=== PATIENT | male | born 1945 | race Caucasian/White ===

== ENCOUNTER 2017-04-16 10:35 | Emergency (ER) | payer OTHER ==
[2017-04-16] MEDS ORDERED: PENICILLIN V POTASSIUM 500 MG TABLET PO ONE (11:31)
[2017-04-16] MEDS ORDERED: CEPHALEXIN 500 MG CAPSULE PO ONE (11:42)
--- NOTE | 2017-04-16 11:58 | ER Document Report ---
HPI - HPI Patient complains to provider of: Shingles Pain Level: 4 Context: Patient is a 71-year-old male who is referred over by primary care physician for evaluation of shingles. Patient states that he was diagnosed on March 31 of this month and was started on valacyclovir and clotrimazole cream for his shingles. Patient states that he took the medications as prescribed but has had itching at the site. Denies any pain, drainage. Denies any fevers or chills. - CARDIOVASCULAR Cardiovascular: DENIES: Chest pain - DERM Skin Color: Normal Past Medical History - Social History Smoking Status: Current Every Day Smoker Chew tobacco use (# tins/day): No Frequency of alcohol use: None Drug Abuse: None Family History: Reviewed & Not Pertinent Patient has suicidal ideation: No Patient has homicidal ideation: No Renal/ Medical History: Denies: Hx Peritoneal Dialysis Surgical Hx: Negative - Immunizations Hx Diphtheria, Pertussis, Tetanus Vaccination: No Vertical Provider Document - CONSTITUTIONAL Agree With Documented VS: Yes Exam Limitations: No Limitations General Appearance: WD/WN, No Apparent Distress - INFECTION CONTROL TRAVEL OUTSIDE OF THE [place] IN LAST 30 DAYS: No - RESPIRATORY Respiratory: Breath Sounds Normal, No Respiratory Distress, Chest Non-Tender O2 Sat by Pulse Oximetry: 97 - CARDIOVASCULAR Cardiovascular: Regular Rate, Regular Rhythm, No Murmur Pulses: Normal: Radial - MUSCULOSKELETAL/EXTREMETIES Musculoskeletal/Extremeties: MAEW, FROM, Non-Tender, No Edema - NEURO Level of Consciousness: Awake, Alert, Appropriate Motor/Sensory: No Motor Deficit, No Sensory Deficit - DERM Integumentary: Warm, Dry, Rash - Patient has evidence of vesicular distribution of shingles consistent with T9 and T10 distribution over the left flank. Evidence of surrounding cellulitis due to patient scratching. Course - Re-evaluation Re-evalutation: 04/16/17 20:38 Initiated on Keflex due to underlying Cellulitis. Told him to take his medications as prescribed and follow-up with primary care in 1-2 weeks. - Vital Signs Vital signs: Temp Pulse Resp BP Pulse Ox 98.2 F 81 19 142/75 H 97 04/16/17 10:41 04/16/17 10:41 04/16/17 10:41 04/16/17 10:41 04/16/17 10:41 Discharge - Discharge Clinical Impression: Shingles, Cellulitis Condition: Good Disposition: HOME, SELF-CARE Instructions: Shingles ([facility]), Cellulitis ([facility]), Soap Cleansing ([facility]) Prescriptions: Cephalexin Monohydrate [Keflex 500 mg Capsule] 500 mg PO QID #20 capsule
[2017-04-16 12:23] VITALS: BP 125/76
== END 2017-04-16 12:23 | disposition home or self-care (01) ==
LOC: ER 10:35
DX: B02.9 Zoster without complications (principal); F17.200 Nicotine dependence, unspecified, uncomplicated; L03.90 Cellulitis, unspecified
CPT/HCPCS: 99283

== ENCOUNTER 2018-11-10 07:19 | Day surgery (SDC) | payer OTHER ==
[~2018-11-10 07:19] MED LIST: KETOROLAC TROMETHAMINE 0.45% 4 DROP/0.4 ML DROPERETTE OS PRN
[2018-11-10] MEDS: TETRACAINE HCL 0.5% OPH SOLN 4 ML OS PRN ×4 (08:13→08:53)
[2018-11-10] MEDS: CYCLOPENTOLATE 0.2%/PHENYLEPHRINE 1% OPH SOLN 2 ML OS PRN ×3 (08:14→08:35)
[2018-11-10] MEDS: TROPICAMIDE 1% OPH SOLN 3 ML OS PRN ×3 (08:14→08:35)
[2018-11-10] MEDS: BESIFLOXACIN HCL 0.6% OPH SUSP 5 ML BOTTLE OS PRN ×4 (08:14→09:15)
[2018-11-10] MEDS ORDERED: MIDAZOLAM 2 MG/2 ML INJ ONE (08:40)
[2018-11-10] MEDS: LIDOCAINE 1% INJ-PF (10 MG/ML) 30 ML SDV ONE ×2 (09:05)
[2018-11-10] MEDS: CHONDR SU A NA/HYALUR INTRAOC KIT (SURGICARE) ONE ×2 (09:05)
[2018-11-10] MEDS: EPINEPHRINE INJ/PF 1 MG/1 ML AMPULE ONE ×2 (09:05)
--- NOTE | 2018-11-11 07:42 | [facility] OPERATIVE REPORT E ---
[facility] Operative Report NAME: GERARDO SAENZ AGE: 73Y DATE OF SURGERY: 11/10/2018 ROOM: PREOPERATIVE DIAGNOSIS: CATARACT, LEFT EYE. POSTOPERATIVE DIAGNOSIS: CATARACT, LEFT EYE. OPERATION: Cataract extraction with insertion of an IOL of the left eye. SURGEON: MARCELINA NORWOOD M.D. ANESTHESIA: Topical. PROCEDURE: After obtaining appropriate consent, the patient's left eye was prepped and draped in sterile fashion as well as the surgeon in a sterile manner and cataract surgery was started. First a paracentesis blade was used to make a side-port incision. Viscoelastic was used to inflate the anterior chamber. Next a 2.4 mm incision was made with a 2.4 mm blade, clear corneal temporally. A continuous capsulorrhexis was made using a cystotome and Utrata forceps. Following this hydrodissection was carried out to make the lens fully loose and mobile and it was rotated 90 degrees. Following this, a hyarpi-uqf-sncffek technique was used to phacoemulsify the lens with a CDE of 8.67. The remaining cortex was removed with irrigation/aspiration. Provisc was instilled into the capsular bag to inflate the bag. A SN60WF, 19.5 diopter lens was placed. The remaining viscoelastic material was removed with irrigation/aspiration. Following this, the incision was found to be watertight. Besivance was instilled into the eye and a protective shield was placed over the eye. The patient returned to the postoperative recovery in stable condition. DICTATING PHYSICIAN: MARCELINA NORWOOD M.D. [id number] PHY#: [id number] 1943 ID: [id number] JOB#: [id number] ACCT: [id number] cc:MARCELINA NORWOOD M.D. >
--- NOTE | 2018-11-11 07:43 | [facility] DISCHARGE SUMMARY E ---
[facility] Discharge Summary NAME: GERARDO SAENZ AGE: 73Y ADMITTED: 11/10/2018 DISCHARGED: 11/10/2018 DIAGNOSIS: CATARACT, LEFT EYE. SUMMARY: This is a 73-year-old patient who underwent cataract extraction, left eye. He underwent surgery because he was having trouble reading road signs and words on the television. DISCHARGE INSTRUCTIONS: He should be on a regular diet, no bending at his waist, and no heavy lifting. He should use his Vigamox, Ketorolac, and Pred Forte at 3 p.m. and 8 p.m. and sleep with a rigid shield. I will see him for his 1-day postoperative tomorrow. DICTATING PHYSICIAN: MARCELINA NORWOOD M.D. [id number] PHY#: [id number] 1943 ID: [id number] JOB#: [id number] ACCT: [id number] cc:MARCELINA NORWOOD M.D. >
== END 2018-11-10 10:33 | disposition home or self-care (01) ==
LOC: SC 07:19
PROVIDERS: ATTEND Internal Medicine
DX: H25.13 Age-related nuclear cataract, bilateral (principal); H35.3111 Nonexudative age-related macular degeneration, right eye, early dry stage; H40.1131 Primary open-angle glaucoma, bilateral, mild stage; I10 Essential (primary) hypertension; E03.9 Hypothyroidism, unspecified; M06.9 Rheumatoid arthritis, unspecified; F17.210 Nicotine dependence, cigarettes, uncomplicated; J45.909 Unspecified asthma, uncomplicated; M19.90 Unspecified osteoarthritis, unspecified site; Z85.828 Personal history of other malignant neoplasm of skin; Z79.51 Long term (current) use of inhaled steroids; Z79.899 Other long term (current) drug therapy
CPT/HCPCS: 66984; V2632; J2250; J3490 ×3; J0171

== ENCOUNTER 2018-12-01 08:18 | Day surgery (SDC) | payer OTHER ==
[~2018-12-01 08:18] MED LIST changes: +CHONDR SU A NA/HYALUR INTRAOC KIT (SURGICARE) ONE; +EPINEPHRINE INJ/PF 1 MG/1 ML AMPULE ONE; +KETOROLAC TROMETHAMINE 0.45% 4 DROP/0.4 ML DROPERETTE OD PRN; -KETOROLAC TROMETHAMINE 0.45% 4 DROP/0.4 ML DROPERETTE OS PRN; +LIDOCAINE 1% INJ-PF (10 MG/ML) 30 ML SDV ONE
[2018-12-01] MEDS: TROPICAMIDE 1% OPH SOLN 3 ML OD PRN ×3 (09:08→09:29)
[2018-12-01] MEDS: CYCLOPENTOLATE 0.2%/PHENYLEPHRINE 1% OPH SOLN 2 ML OD PRN ×3 (09:08→09:29)
[2018-12-01] MEDS: BESIFLOXACIN HCL 0.6% OPH SUSP 5 ML BOTTLE OD PRN ×4 (09:08→09:57)
[2018-12-01] MEDS: TETRACAINE HCL 0.5% OPH SOLN 4 ML OD PRN ×3 (09:08→09:34)
[2018-12-01] MEDS ORDERED: MIDAZOLAM 2 MG/2 ML INJ ONE (09:28)
--- NOTE | 2018-12-02 12:02 | [facility] DISCHARGE SUMMARY E ---
[facility] Discharge Summary NAME: GERARDO SAENZ AGE: 73Y ADMITTED: 12/01/2018 DISCHARGED: 12/01/2018 HISTORY: A 73-year-old male who underwent cataract extraction of the right eye. DIAGNOSIS: Cataract, right eye. HOSPITAL COURSE: He underwent surgery because he was having trouble driving at night secondary to glare from headlights. DISCHARGE INSTRUCTIONS: He should be on a regular diet. No bending at his waist. No heavy lifting. He should his Vigamox, Ketorolac, and Predforte at 3 p.m. and 8 p.m. and sleep with a rigid shield, and I will see him for his 1 day postoperative tomorrow. DICTATING PHYSICIAN: MARCELINA NORWOOD M.D. [id number] PHY#: [id number] 2011 ID: [id number] JOB#: [id number] ACCT: [id number] cc:MARCELINA NORWOOD M.D. >
--- NOTE | 2018-12-02 12:02 | [facility] OPERATIVE REPORT E ---
[facility] Operative Report NAME: GERARDO SAENZ AGE: 73Y DATE OF SURGERY: 12/01/2018 ROOM: PREOPERATIVE DIAGNOSIS: CATARACT, RIGHT EYE. POSTOPERATIVE DIAGNOSIS: CATARACT, RIGHT EYE. OPERATION: Cataract extraction with insertion of an IOL of the right eye. SURGEON: MARCELINA NORWOOD M.D. ANESTHESIA: Topical. PROCEDURE: After obtaining appropriate consent, the patient's right eye was prepped and draped in sterile fashion as well as the surgeon in a sterile manner and cataract surgery was started. First a paracentesis blade was used to make a side-port incision. Viscoelastic was used to inflate the anterior chamber. Next a 2.4 mm incision was made with a 2.4 mm blade, clear corneal temporally. A continuous capsulorrhexis was made using a cystotome and Utrata forceps. Following this hydrodissection was carried out to make the lens fully loose and mobile and it was rotated 90 degrees. Following this, a fmorrx-iow-jscprdr technique was used to phacoemulsify the lens with a CDE of 7.59. The remaining cortex was removed with irrigation/aspiration. Provisc was instilled into the capsular bag to inflate the bag. A SN60WF, 19.0 diopter lens was placed. The remaining viscoelastic material was removed with irrigation/aspiration. Following this, the incision was found to be watertight. Besivance was instilled into the eye and a protective shield was placed over the eye. The patient returned to the postoperative recovery in stable condition. DICTATING PHYSICIAN: MARCELINA NORWOOD M.D. [id number] PHY#: [id number] 2011 ID: [id number] JOB#: [id number] ACCT: [id number] cc:MARCELINA NORWOOD M.D. >
== END 2018-12-01 10:29 | disposition home or self-care (01) ==
LOC: SC 08:18
PROVIDERS: ATTEND Internal Medicine
DX: H25.11 Age-related nuclear cataract, right eye (principal); Z96.1 Presence of intraocular lens; H40.1131 Primary open-angle glaucoma, bilateral, mild stage; I10 Essential (primary) hypertension; J44.9 Chronic obstructive pulmonary disease, unspecified; Z79.51 Long term (current) use of inhaled steroids; M19.90 Unspecified osteoarthritis, unspecified site; E07.9 Disorder of thyroid, unspecified; K21.9 Gastro-esophageal reflux disease without esophagitis; F17.210 Nicotine dependence, cigarettes, uncomplicated
CPT/HCPCS: 66984; V2632; J2250; J3490 ×3; J0171; 142